=== PATIENT | female | born 1985 | race Caucasian/White ===

== ENCOUNTER → 2017-04-01 | Outpatient (CLI) | payer OTHER ==
[~2017-04-01] MED LIST: DILAUDID4 MG PO; Dilaudid PO; FLINTSTONES GU1 EACH PO; MICRONOR0.35 MG PO; Motrin PO; NATALCARE RX1 TABLET PO; NOHOMEMEDS; PROVENTIL HFA6.7 GM IH; PROVENTIL,2.5 MG/3 M IH; TUMS500 MG PO; TYLENOL EXTRA500 MG PO; XANAX0.25 MG PO; Zantac PO
== END | disposition home or self-care (01) ==
LOC: NUC 03-11 08:30
DX: R10.11 Right upper quadrant pain (principal); R10.816 Epigastric abdominal tenderness; R19.7 Diarrhea, unspecified; R11.0 Nausea; R14.0 Abdominal distension (gaseous)
CPT/HCPCS: 78264; A9541